=== PATIENT | female | born 1980 | race Caucasian/White ===

== ENCOUNTER 2024-10-18 08:57 | Outpatient (CLI) | payer BC, OTHER, SELFPAY ==
--- NOTE | 2024-10-18 09:00 | MM_ITS ---
WS: [id number] BILATERAL SCREENING DIGITAL TOMOSYNTHESIS MAMMOGRAM WITH CAD HISTORY: SCREENING COMPARISON: 04/20/2023 Bilateral CC and MLO views with tomosynthesis and synthetic mammography submitted. Computer aided detection analyzed. Breast composition: There are scattered areas of fibroglandular density. No suspicious masses, microcalcifications or architectural distortion. Numerous peripherally calcified masses in the RIGHT breast are stable. Additional benign scattered calcifications. New well-circumscribed mass 3:00 LEFT breast at a middle depth measures 3 x 4 x 4 mm. MM/MM [facility] tomosynthesis [id number] IMPRESSION: BI-RADS: 0 - Incomplete: Need additional imaging evaluation. FOLLOW UP: Need Additional Imaging Recommendation: Ultrasound LEFT breast, 3:00.
== END 2024-10-18 08:58 | disposition home or self-care (01) ==
LOC: MOBLMAM 09:01
PROVIDERS: PCP Student in an Organized Health Care Education/Training Program; Visit Provider Student in an Organized Health Care Education/Training Program
DX: Z12.31 Encounter for screening mammogram for malignant neoplasm of breast (principal); R92.323 Mammographic fibroglandular density, bilateral breasts; R92.1 Mammographic calcification found on diagnostic imaging of breast; N63.20 Unspecified lump in the left breast, unspecified quadrant
CPT/HCPCS: 77063; 77067

== ENCOUNTER 2024-11-13 10:16 | Outpatient (CLI) | payer BC, OTHER, SELFPAY ==
--- NOTE | 2024-11-13 10:24 | US_ITS ---
WS: [id number] ULTRASOUND LEFT BREAST HISTORY: ABNORMAL INCONCLUSIVE FINDINGS OF LEFT BREAST COMPARISON: 10/18/2024, 04/20/2023 TECHNIQUE: 2-D and Doppler. Ultrasound directed to the lateral LEFT breast from 2-4 o'clock. There is no mass or shadowing identified. No distortion. US/US breast LT limited* [id number] IMPRESSION: BI-RADS: 3- Probably Benign FOLLOW-UP: 6 Month Follow-up Recommend diagnostic LEFT mammogram follow-up in 6 months. Possible limited ult rasound at the same time. This is to reevaluate the new well-circumscribed mass in the lateral LEFT breast. Favor this is benign.
== END 2024-11-13 10:17 | disposition home or self-care (01) ==
LOC: RAD 10:18
PROVIDERS: PCP Student in an Organized Health Care Education/Training Program; Visit Provider Student in an Organized Health Care Education/Training Program
DX: R92.8 Other abnormal and inconclusive findings on diagnostic imaging of breast (principal)
CPT/HCPCS: 76642